=== PATIENT | female | born 1990 | race Two or more races ===

== ENCOUNTER 2021-12-10 17:37 | Emergency (ER) | payer OTHER ==
[2021-12-10 17:52] VITALS: BP 106/74; PULSE 77; TEMP 97.6; BMI 26.5
[2021-12-10] MEDS ORDERED: DIPHTH,PERTUSS(ACELL),TET 0.5 ML DISP.SYRIN IM ONE (18:45)
== END 2021-12-10 19:13 | disposition home or self-care (01) ==
LOC: JERFT 17:37
PROC: 3E0233Z Introduction of Anti-inflammatory into Muscle, Percutaneous Approach (ICD-10-PCS; principal; 2021-12-10)
DX: S65.212A Laceration of superficial palmar arch of left hand, initial encounter (principal); W29.0XXA Contact with powered kitchen appliance, initial encounter
CPT/HCPCS: 90471; 90715; 96372; 99284-25